=== PATIENT | female | born 1965 | race African-American/Black ===

== ENCOUNTER 2017-06-15 07:42 | Day surgery (SDC) | payer SELFPAY ==
[2017-06-14 13:04] LABS: BASOPHILS 0.3 %; BASOPHILS ABSOLUTE 0.02 10/3/uL (0.0-0.16); EOSINOPHILS 0.8 %; EOSINOPHILS ABSOLUTE 0.06 10/3/uL (0.0-0.53); HEMATOCRIT 42.1 % (36.0-48.0); HEMOGLOBIN 13.9 g/dL (12.0-16.0); IMMATURE GRANULOCYTES 0.3 %; IMMATURE GRANULOCYTES ABSOLUTE 0.02 10/3/uL (0.0-0.11); LYMPHOCYTES ABSOLUTE 2.11 10/3/uL (0.67-4.30); MEAN CORPUSCULAR HEMOGLOB 30.9 pg (26.0-34.0); MEAN CORPUSCULAR VOLUME 93.6 fL (80-100); MEAN PLATELET VOLUME 11.7 fL (9.2-13.0); MONOCYTES 9.2 %; MONOCYTES ABSOLUTE 0.67 10/3/uL (0.21-1.20); NEUTROPHILS 60.4 %; NEUTROPHILS ABSOLUTE 4.39 10/3/uL (2.02-8.40); PLATELET COUNT 269 10/3/uL (150-400); RBC DISTRIBUTION WIDTH 13.2 % (12.0-16.0); WHITE BLOOD CELLS 7.3 10/3/uL (4.5-10.5)
[2017-06-14 13:13] LABS: MANUAL DIFF NO %
[2017-06-14 13:30] LABS: ALBUMIN 4.1 G/DL (3.5-5.0); ALKALINE PHOSPHATASE 72 U/L (45-117); BUN (BLOOD UREA NITROGEN) 11 MG/DL (6-23); CALCIUM, SERUM 9.9 MG/DL (8.5-10.4); CHLORIDE, SERUM 109 MMOL/L (96-112); CO2 (CARBON DIOXIDE) 27 MMOL/L (24-34); CREATININE 0.58 MG/DL (0.55-1.02); GFR AFRICAN AMERICAN 125 ML/MIN (>=60); GFR NON AFRICAN AMERICAN 108 ML/MIN (>=60); GLOBULIN 4.3 G/DL (2.5-4.1); GLUCOSE, SERUM 69 MG/DL (60-99); POTASSIUM, SERUM 4.4 MMOL/L (3.5-5.3); SGOT(AST) 18 U/L (5-40); SGPT(ALT) 15 U/L (5-65); SODIUM, SERUM 142 MMOL/L (135-148); TOTAL PROTEIN 8.4 G/DL (6.0-8.5)
[~2017-06-15] VITALS: Ht 167.6 cm; Wt 54.2 kg
--- NOTE | ~2017-06-15 | OP ---
Record Of Operation [facility] [address] [place]. [address] NAME: LYNN MENDOZA : 69 STATUS : [facility]#: [id number] AGE: 51 ADM/REG DATE : 06/15/17 MR#: [id number] REPORT SERV DATE: 06/18/17 DICTATED BY: YASMINE WOODSON JR. DATE: 06/15/17 REPORT STATUS : Draft TRANSCRIBED BY: DEREJE DATE: 06/15/17 DATE OF PROCEDURE: REASON FOR SURGERY: This 51-year-old patient presents with a small malignancy of the left breast. She has undergone extensive workup and the lesion has been oriented on the chart with ultrasound orientation. She is now to undergo breast preservation therapy. I should mention that her initial screening for genetic abnormalities has been negative. PREOPERATIVE DIAGNOSIS: Carcinoma, left breast. POSTOPERATIVE DIAGNOSIS: Carcinoma, left breast. SURGERY PERFORMED: [place] node localization followed by left breast segmentectomy and sentinel node resection. DESCRIPTION OF PROCEDURE: The patient previously underwent ultrasound localization. She was injected in the nuclear medicine facility. She was taken to the operating room, and under general anesthesia, she was prepped and draped in the supine position in the usual sterile fashion. A curvilinear incision was made in the upper outer quadrant over the previously localized site. The incision was made and 3.5 cm sphere of tissue was removed with multiple dense breast nodules noted, but a single mass was not evident. It was oriented for pathology but clip and tumor were not evident. An additional search with intraoperative ultrasound was performed and the only area of concern that was evident was more towards the axilla and indeed involved the very periphery of the axillary tail of the breast. This was removed and also oriented for pathology, but once again, no evidence of tumor was present and final x-ray of this also failed to show the clip. I searched extensively with ultrasound and manually but no evidence of tumor formation. While the initial sentinel node showed non-migration, I was able to discern a faint area of activity in the mid axilla. A small curvilinear incision was made and vertical dissection was carried down to a singly active very small node at the level 1 position. The count was 118 with background count around 10 indicating appropriate resection of the sentinel node. It was extremely small. The wound was irrigated. Hemostasis obtained. The wound was closed with 2 layers of Monocryl. The patient tolerated the procedure well without complications. ESTIMATED BLOOD LOSS: Less than 10 mL. SPONGE COUNT: Correct. Record Of Operation [facility] [place]. [address] NAME: LYNN MENDOZA : 69 STATUS : [facility]#: [id number] AGE: 51 ADM/REG DATE : 06/15/17 MR#: [id number] REPORT SERV DATE: 06/18/17 DICTATED BY: YASMINE WOODSON JR. DATE: 06/15/17 REPORT STATUS : Draft TRANSCRIBED BY: DEREJE DATE: 06/15/17 Once final pathology returns, if the tumor nodules are not evident, then indeed she will need repeat mammogram and possible wire localization for removal of the clip and surrounding nodule. This has been explained to the patient's sister at this time, but will be explained to the patient once again when I see [facility] in a few days' time. /DEREJE Yasmine Woodson Jr., M.D. / [id number] CC: Yasmine Woodson Jr., M.D. #[id number] (DR. WOODSON) RIKA
[~2017-06-15 07:42] MED LIST: BC POWDER PO; BRIMONIDINE0.2 % OPH; COSOPT OPH; INVEGA1.5 MG PO; PCET PO; PILOCARPINE 2% OPH; PILOCARPINE OP; [UNRECOGNIZED DRUG - OTHER] PO
[2017-06-26] MEDS ORDERED: PCET PO (11:14)
== END 2017-06-15 18:50 | disposition home or self-care (01) ==
LOC: SDC 07:42 → NM 07:42 → SDC 09:30
PROVIDERS: Surgery Surgical Oncology
PROC: 07B60ZX Excision of Left Axillary Lymphatic, Open Approach, Diagnostic (ICD-10-PCS; 2017-06-15)
PROC: 0HBU0ZZ Excision of Left Breast, Open Approach (ICD-10-PCS; principal; 2017-06-15 09:30)
DX: C77.3 Secondary and unspecified malignant neoplasm of axilla and upper limb lymph nodes (principal); C50.912 Malignant neoplasm of unspecified site of left female breast; D24.2 Benign neoplasm of left breast; N60.22 Fibroadenosis of left breast; H40.9 Unspecified glaucoma; M41.9 Scoliosis, unspecified; F32.9 Major depressive disorder, single episode, unspecified; D64.9 Anemia, unspecified; D86.9 Sarcoidosis, unspecified; Z86.018 Personal history of other benign neoplasm; Z90.710 Acquired absence of both cervix and uterus; Z90.49 Acquired absence of other specified parts of digestive tract; Z98.890 Other specified postprocedural states
CPT/HCPCS: 71020; 76098; 78195; 80053; 85025; 88305; 88307; 88333; 88342; A9270-GY; A9541; J0690; J1170; J2250; J2405; J2710; J3010